=== PATIENT | female | born 1975 | race Caucasian/White ===

== ENCOUNTER 2021-06-02 14:00 | Observation (INO) | payer BC ==
[2021-06-02] MEDS ORDERED: Lactated Ringers 1,000 ML IV ONE (14:26)
[2021-06-02] MEDS ORDERED: levETIRAcetam 500 MG in Sodium Chloride 0.9% 100 ML IV ONE ×2 (14:27→16:31)
[2021-06-02] MEDS ORDERED: Sodium Chloride 0.9% 10 ML Syringe FLUSH PRN (14:27)
--- NOTE | 2021-06-02 15:45 | EDM.PDOC ---
ED HPI GENERAL MEDICAL PROBLEM - General Chief Complaint: Neuro Symptoms/Deficits Stated Complaint: ZENIA AMB Time Seen by Provider: 06/02/21 14:25 Source of Information: Reports: Patient, EMS, Family (), RN Notes Reviewed - History of Present Illness INITIAL COMMENTS - FREE TEXT/NARRATIVE: 45 yr old female with known seizure disorder has had 3 seizures in the past 5 hrs. She is on keppra, has not missed dosages that she is aware of. Has not been recently ill. saw the first 2, they were brief, 2nd tonic clonic. The third occured in bathroom of their motel, he did not see it but she was not actively seizing when he got to her. Fell and hit back of head with last seizure. Mild Saldivar, mild neck discomfort at time of exam. states she has not been ill. They were out for a 90 minute hike yesterday afternoon, it was hot but she has been drinking fluids. No recent vomiting or diarrhea. state she has not had a seizure in 6 to 8 years. She states she has not been missing any doses of the keppra to her knowledge. - Related Data Allergies Allergy/AdvReac Type Severity Reaction Status Date / Time No Known Allergies Allergy Verified 06/02/21 14:05 Home Meds: Home Meds Chlorthalidone 0 mg PO BID 06/02/21 [History] atorvaSTATin [Lipitor] 0 mg PO DAILY 06/02/21 [History] levETIRAcetam [Keppra] 1,000 mg PO BID 06/02/21 [History] Past Medical History Cardiovascular History: Reports: High Cholesterol, Hypertension Neurological History: Reports: Seizure, Other (See Below) Other Neuro History: Epilepsy - Past Surgical History GI Surgical History: Reports: Appendectomy Social & Family History - Tobacco Use Tobacco Use Status *Q: Never Tobacco User - Caffeine Use Caffeine Use: Reports: Coffee, Tea - Recreational Drug Use Recreational Drug Use: No ED ROS GENERAL - Review of Systems Review Of Systems: See Below Constitutional: Denies: Fever, Chills HEENT: Reports: Other (has a small tongue abrasion) Respiratory: Denies: Shortness of Breath Cardiovascular: Denies: Chest Pain GI/Abdominal: Denies: Abdominal Pain, Diarrhea, Nausea, Vomiting Musculoskeletal: Reports: Neck Pain. Denies: Back Pain, Leg Pain Skin: Reports: No Symptoms Neurological: Reports: Headache. Denies: Numbness, Tingling, Trouble Speaking - Physical Exam Exam: See Below General Appearance: Other (moderately drowsy at time of exam) Eye Exam: Bilateral Eye: PERRL Ears: Normal External Exam Nose: Normal Inspection Throat/Mouth: Other (small abrasion distal R tongue, no active bleeding) Head Exam: Scalp Swelling (mild swelling post scalp, no visible lac or abrasion) Neck: Non-Tender, Other (mild tenderness post neck) Neuro Exam (Abbreviated): Alert, Oriented, No Motor/Sensory Deficits Extremities: Normal Inspection, Normal Range of Motion Skin Exam: Warm, Dry, Normal Color, No Rash Course - Vital Signs Last Recorded V/S: Last Vital Signs Temp 96.9 F 06/02/21 14:02 Pulse 80 06/02/21 17:24 Resp 16 06/02/21 17:24 BP 110/73 06/02/21 17:24 Pulse Ox 100 06/02/21 17:24 - Orders/Labs/Meds Orders: Active Orders 24 hr Category Date Time Status Peripheral IV Care [RC] . DIRECTED Care 06/02/21 14:27 Active CORONAVIRUS COVID-19 ROSAURA [MOLEC] Stat Lab 06/02/21 16:38 Ordered UA W/VIKTOR RFLX IF INDICATED [URIN] Stat Lab 06/02/21 16:46 Ordered Potassium Chloride [KCl in Water 10 MEQ/100 ML] 10 meq Med 06/02/21 16:40 Active Premix Bag 1 bag IV ASDIRECTED Sodium Chloride 0.9% [Normal Saline] 1,000 ml Med 06/02/21 17:00 Active IV ASDIRECTED Sodium Chloride 0.9% [Saline Flush] Med 06/02/21 14:27 Active 10 ml FLUSH ASDIRECTED PRN Peripheral IV Insertion Adult [OM.PC] Stat Oth 06/02/21 14:26 Ordered Medication Orders Potassium Chloride 10 meq/ (Premix) 100 mls @ 50 mls/hr IV ASDIRECTED ONE Stop: 06/02/21 18:39 Last Admin: 06/02/21 17:07 Dose: 50 mls/hr Documented by: ROBERTO Sodium Chloride (Normal Saline) 1,000 mls @ 100 mls/hr IV ASDIRECTED BELLE Sodium Chloride (Sodium Chloride 0.9% 10 Ml Syringe) 10 ml FLUSH ASDIRECTED PRN PRN Reason: Keep Vein Open Last Admin: 06/02/21 14:54 Dose: 10 ml Documented by: ROBERTO Labs: Laboratory Tests 06/02/21 06/02/21 Range/Units 15:40 15:40 WBC 22.04 H (3.98-10.04) K/mm3 RBC 4.43 (3.98-5.22) M/mm3 Hgb 13.1 (11.2-15.7) gm/dl Hct 39.0 (34.1-44.9) % MCV 88.0 (79.4-94.8) fl MCH 29.6 (25.6-32.2) pg MCHC 33.6 (32.2-35.5) g/dl RDW Std Deviation 40.3 (36.4-46.3) fL Plt Count 359 (182-369) K/mm3 MPV 9.4 (9.4-12.3) fl Neut % (Auto) 89.7 H (34.0-71.1) % Lymph % (Auto) 4.1 L (19.3-51.7) % [place] % (Auto) 5.8 (4.7-12.5) % Eos % (Auto) 0 L (0.7-5.8) Baso % (Auto) 0.1 (0.1-1.2) % Neut # (Auto) 19.78 H (1.56-6.13) K/mm3 Lymph # (Auto) 0.90 L (1.18-3.74) K/mm3 [place] # (Auto) 1.28 H (0.24-0.36) K/mm3 Eos # (Auto) 0.00 L (0.04-0.36) K/mm3 Baso # (Auto) 0.02 (0.01-0.08) K/mm3 Sodium 139 (136-145) mEq/L Potassium 3.0 L (3.5-5.1) mEq/L Chloride 101 (98-107) mEq/L Carbon Dioxide 28 (21-32) mEq/L Anion Gap 13.0 (5-15) BUN 12 (7-18) mg/dL Creatinine 0.8 (0.55-1.02) mg/dL Est Cr Clr Drug Dosing 90.85 mL/min Estimated GFR (MDRD) > 60 (>60) mL/min BUN/Creatinine Ratio 15.0 (14-18) Glucose 117 H (70-99) mg/dL Calcium 8.9 (8.5-10.1) mg/dL Total Bilirubin 0.4 (0.2-1.0) mg/dL AST 27 (15-37) U/L ALT 37 (14-59) U/L Alkaline Phosphatase 49 (46-116) U/L Total Protein 6.6 (6.4-8.2) g/dl Albumin 3.6 (3.4-5.0) g/dl Globulin 3.0 gm/dL Albumin/Globulin Ratio 1.2 (1-2) Meds: Medications Generic Name Dose Route Start Last Admin Trade Name Fremichaela PRN Reason Stop Dose Admin Potassium Chloride 10 meq/ 100 mls @ 50 mls/hr 06/02/21 16:40 06/02/21 17:07 Premix IV 06/02/21 18:39 50 mls/hr ASDIRECTED ONE Administration Sodium Chloride 1,000 mls @ 100 mls/hr 06/02/21 17:00 Normal Saline IV ASDIRECTED BELLE Sodium Chloride 10 ml 06/02/21 14:27 06/02/21 14:54 Sodium Chloride 0.9% 10 Ml Syringe FLUSH 10 ml ASDIRECTED PRN Administration Keep Vein Open Discontinued Medications Generic Name Dose Route Start Last Admin Trade Name Trish PRN Reason Stop Dose Admin Lactated Ringer's 1,000 mls @ 999 mls/hr 06/02/21 14:26 06/02/21 14:40 Ringers, Lactated IV 06/02/21 15:26 999 mls/hr .BOLUS ONE Administration Levetiracetam 500 mg/ Sodium 105 mls @ 400 mls/hr 06/02/21 14:27 06/02/21 14:40 Chloride IV 06/02/21 14:41 400 mls/hr ONETIME ONE Administration Levetiracetam 500 mg/ Sodium 105 mls @ 400 mls/hr 06/02/21 16:31 06/02/21 16:38 Chloride IV 06/02/21 16:45 400 mls/hr ONETIME ONE Administration Sodium Chloride Confirm 06/02/21 16:31 06/02/21 16:43 Normal Saline Administered 06/02/21 16:32 Not Given Dose 100 mls @ as directed .ROUTE .STK-MED ONE Sodium Chloride Confirm 06/02/21 17:10 06/02/21 17:23 Normal Saline Administered 06/02/21 17:11 Not Given Dose 1,000 mls @ as directed .ROUTE .STK-MED ONE Levetiracetam Confirm 06/02/21 16:28 06/02/21 16:39 Levetiracetam 500 Mg/5 Ml Sdv Administered 06/02/21 16:29 Not Given Dose 500 mg .ROUTE .STK-MED ONE Lorazepam Confirm 06/02/21 16:25 06/02/21 16:25 Lorazepam 2 Mg/Ml Sdv Administered 06/02/21 16:26 1 mg Dose Administration 2 mg .ROUTE .STK-MED ONE - Re-Assessments/Exams Free Text/Narrative Re-Assessment/Exam: 06/02/21 17:12. Pt had a brief seizure right after her head CT about 30 minutes ago. Generalized tonic clonic lasting about 2 minutes. She did drop her sats at the end of the seizure but they did come back to 100 % very quickly with O2 once seizure stopped. We did give another 500 mg keppra IV and also ativan 1 mg IV. 17:35. I talked to Dr Horvath, Neurologist [facility], discussed events of today for this patient. He suggests increasing her Keppra to 1250 mg twice daily from the current 1000 mg bid. He agrees with correcting her current potassium deficit. He suggest overnight Obvs. admission, if doing well consider discharge tomorrow. I have discussed this with Dr Senior, our Hospitalist who is in agreement with that plan. Departure - Departure Time of Disposition: 17:30 Disposition: Refer to Observation Condition: Fair Clinical Impression: Recurrent seizures, Hypokalemia - Discharge Information Referrals: PCP,Not In Area [Primary Care Provider] - Forms: ED Department Discharge Sepsis Event Note (ED) - Evaluation Sepsis Screening Result: No Definite Risk - Focused Exam Vital Signs: Vital Signs Temp Pulse Resp BP BP Pulse Ox 06/02/21 17:24 80 16 110/73 100 06/02/21 14:02 96.9 F 62 18 133/75 100 ED Communication - Discussed Case With (1) Discussed Case With (1): Admitting Provider (Dr Senior, decision to admit at about 17:30) - My Orders Last 24 Hours: My Active Orders 06/02/21 14:26 Peripheral IV Insertion Adult [OM.PC] Stat 06/02/21 14:27 Peripheral IV Care [RC] . DIRECTED Sodium Chloride 0.9% [Saline Flush] 10 ml FLUSH ASDIRECTED PRN 06/02/21 16:38 CORONAVIRUS COVID-19 ROSARUA [MOLEC] Stat 06/02/21 16:40 Potassium Chloride [KCl in Water 10 MEQ/100 ML] 10 meq Premix Bag 1 bag IV ASDIRECTED 06/02/21 16:46 UA W/VIKTOR RFLX IF INDICATED [URIN] Stat 06/02/21 17:00 Sodium Chloride 0.9% [Normal Saline] 1,000 ml IV ASDIRECTED - Assessment/Plan Last 24 Hours: My Active Orders 06/02/21 14:26 Peripheral IV Insertion Adult [OM.PC] Stat 06/02/21 14:27 Peripheral IV Care [RC] . DIRECTED Sodium Chloride 0.9% [Saline Flush] 10 ml FLUSH ASDIRECTED PRN 06/02/21 16:38 CORONAVIRUS COVID-19 ROSAURA [MOLEC] Stat 06/02/21 16:40 Potassium Chloride [KCl in Water 10 MEQ/100 ML] 10 meq Premix Bag 1 bag IV ASDIRECTED 06/02/21 16:46 UA W/VIKTOR RFLX IF INDICATED [URIN] Stat 06/02/21 17:00 Sodium Chloride 0.9% [Normal Saline] 1,000 ml IV ASDIRECTED
[2021-06-02] MEDS ORDERED: LORazepam 2 MG/ML SDV ONE (16:25)
[2021-06-02] MEDS ORDERED: levETIRAcetam 500 MG/5 ML SDV ONE (16:28)
[2021-06-02] MEDS ORDERED: Sodium Chloride 0.9% 100 ML ONE (16:31)
[2021-06-02] MEDS ORDERED: Potassium Chloride 10 MEQ in Premix Bag 1 BAG IV ONE (16:40)
--- NOTE | 2021-06-02 16:42 | CT ---
Head CT Technique: Multiple axial sections through the brain were obtained. Intravenous contrast was not utilized. Reconstructed coronal and sagittal images were obtained. Comparison: No prior intracranial imaging is available. Findings: Ventricles along with basal cisterns and sulci over the convexities are within normal limits for the patient's age. No abnormal parenchymal densities are seen. No evidence of intracranial hemorrhage is seen. No midline shift or mass-effect is seen. Bone window settings were reviewed which show nothing acute within the visualized mastoid sinuses and paranasal sinuses. No acute calvarial abnormality is appreciated. Impression: 1. Nothing acute is appreciated on noncontrast head CT study. Diagnostic code #1
--- NOTE | 2021-06-02 16:43 | CT ---
CT cervical spine Technique: Multiple axial sections were obtained from above C1 inferiorly to the mid T2 level. Reconstructed coronal and sagittal images were obtained. Comparison: No prior cervical spine imaging is available. Findings: Vertebral body heights and disc spaces are maintained. No bony central or bony neural foraminal stenosis is seen. No fracture is seen. No abnormal subluxation is seen. Impression: 1. No abnormality is identified on CT study of the cervical spine. Diagnostic code #1
[2021-06-02] MEDS ORDERED: Sodium Chloride 0.9% 1,000 ML IV SCH (17:00)
[2021-06-02] MEDS ORDERED: Sodium Chloride 0.9% 1,000 ML ONE (17:10)
[2021-06-02] MEDS ORDERED: Docusate Sodium 100 MG Cap PO PRN (17:41)
[2021-06-02] MEDS ORDERED: Ondansetron 4 MG Tab.DIS PO PRN (17:41)
[2021-06-02] MEDS ORDERED: Temazepam 7.5 MG Cap PO PRN (17:41)
[2021-06-02] MEDS ORDERED: Sodium Chloride 0.9% 500 ML IV SCH (17:44)
--- NOTE | 2021-06-02 17:50 | PCM.HP.2 ---
H&P History of Present Illness - General Date of Service: 06/02/21 Admit Problem/Dx: Admission Diagnosis/Problem Admission Diagnosis/Problem Seizure Source of Information: Patient History Limitations: Reports: No Limitations - History of Present Illness Onset of Symptoms: Reports: Today Symptom Onset Date: 06/02/21 Location: Reports: Other (seizure) Improves with: Reports: None Worsens with: Reports: None Associated Symptoms: Reports: Other (post ictal lethargy) - Related Data Allergies/Adverse Reactions: Allergies Allergy/AdvReac Type Severity Reaction Status Date / Time No Known Allergies Allergy Verified 06/02/21 14:05 Home Medications: Home Meds Chlorthalidone 0 mg PO BID 06/02/21 [History] atorvaSTATin [Lipitor] 0 mg PO DAILY 06/02/21 [History] levETIRAcetam [Keppra] 1,000 mg PO BID 06/02/21 [History] Past Medical History Cardiovascular History: Reports: High Cholesterol, Hypertension Neurological History: Reports: Seizure, Other (See Below) Other Neuro History: Epilepsy - Past Surgical History GI Surgical History: Reports: Appendectomy Social & Family History - Tobacco Use Tobacco Use Status *Q: Never Tobacco User - Caffeine Use Caffeine Use: Reports: Coffee, Tea - Recreational Drug Use Recreational Drug Use: No H&P Review of Systems - Review of Systems: Review Of Systems: See Below General: Reports: No Symptoms HEENT: Reports: No Symptoms Pulmonary: Reports: No Symptoms Cardiovascular: Reports: No Symptoms Gastrointestinal: Reports: No Symptoms Genitourinary: Reports: No Symptoms Musculoskeletal: Reports: No Symptoms Skin: Reports: No Symptoms Psychiatric: Reports: No Symptoms Neurological: Reports: Seizure, Weakness Hematologic/Lymphatic: Reports: No Symptoms Immunologic: Reports: No Symptoms Exam - Exam Exam: See Below - Vital Signs Vital Signs: Last Vital Signs Temp 96.9 F 06/02/21 14:02 Pulse 80 06/02/21 17:24 Resp 16 06/02/21 17:24 BP 110/73 06/02/21 17:24 Pulse Ox 100 06/02/21 17:24 Weight: 175 lb - Exam General: Alert, Oriented HEENT: Conjunctiva Clear, EOMI Neck: Supple, Trachea Midline Lungs: Clear to Auscultation, Normal Respiratory Effort Cardiovascular: Regular Rate, Regular Rhythm GI/Abdominal Exam: Normal Bowel Sounds, Soft, Non-Tender, No Organomegaly Back Exam: Normal Inspection, Full Range of Motion Extremities: Normal Inspection, Normal Range of Motion Peripheral Pulses: 2+: Dorsalis Pedis (L), Dorsalis Pedis (R) Skin: Warm, Dry Neurological: Cranial Nerves Intact Neuro Extensive - Mental Status: Alert, Oriented x3, Normal Mood/Affect, Normal Cognition, Memory Intact Neuro Extensive - Motor, Sensory, Reflexes: CN II-XII Intact, Normal Gait, Normal Reflexes DTR: 2+: Patella (L), Patella (R), Achilles (L), Achilles (R) Psychiatric: Alert, Normal Affect, Normal Mood - Patient Data Lab Results Last 24 hrs: Laboratory Results - last 24 hr 06/02/21 06/02/21 Range/Units 15:40 15:40 WBC 22.04 H (3.98-10.04) K/mm3 RBC 4.43 (3.98-5.22) M/mm3 Hgb 13.1 (11.2-15.7) gm/dl Hct 39.0 (34.1-44.9) % MCV 88.0 (79.4-94.8) fl MCH 29.6 (25.6-32.2) pg MCHC 33.6 (32.2-35.5) g/dl RDW Std Deviation 40.3 (36.4-46.3) fL Plt Count 359 (182-369) K/mm3 MPV 9.4 (9.4-12.3) fl Neut % (Auto) 89.7 H (34.0-71.1) % Lymph % (Auto) 4.1 L (19.3-51.7) % [place] % (Auto) 5.8 (4.7-12.5) % Eos % (Auto) 0 L (0.7-5.8) Baso % (Auto) 0.1 (0.1-1.2) % Neut # (Auto) 19.78 H (1.56-6.13) K/mm3 Lymph # (Auto) 0.90 L (1.18-3.74) K/mm3 [place] # (Auto) 1.28 H (0.24-0.36) K/mm3 Eos # (Auto) 0.00 L (0.04-0.36) K/mm3 Baso # (Auto) 0.02 (0.01-0.08) K/mm3 Sodium 139 (136-145) mEq/L Potassium 3.0 L (3.5-5.1) mEq/L Chloride 101 (98-107) mEq/L Carbon Dioxide 28 (21-32) mEq/L Anion Gap 13.0 (5-15) BUN 12 (7-18) mg/dL Creatinine 0.8 (0.55-1.02) mg/dL Est Cr Clr Drug Dosing 90.85 mL/min Estimated GFR (MDRD) > 60 (>60) mL/min BUN/Creatinine Ratio 15.0 (14-18) Glucose 117 H (70-99) mg/dL Calcium 8.9 (8.5-10.1) mg/dL Total Bilirubin 0.4 (0.2-1.0) mg/dL AST 27 (15-37) U/L ALT 37 (14-59) U/L Alkaline Phosphatase 49 (46-116) U/L Total Protein 6.6 (6.4-8.2) g/dl Albumin 3.6 (3.4-5.0) g/dl Globulin 3.0 gm/dL Albumin/Globulin Ratio 1.2 (1-2) Result Diagrams: 06/02/21 15:40 06/02/21 15:40 Sepsis Event Note - Evaluation Sepsis Screening Result: No Definite Risk - Focused Exam Vital Signs: Vital Signs Temp Pulse Resp BP BP Pulse Ox 06/02/21 17:24 80 16 110/73 100 06/02/21 14:02 96.9 F 62 18 133/75 100 Problem List Initiated/Reviewed/Updated: Yes Orders Last 24hrs: Active Orders 24 hr Category Date Time Status Patient Status [ADT] Routine ADT 06/02/21 17:38 Ordered Bedrest Bathroom Privileges [RC] ASDIRECTED Care 06/02/21 17:37 Ordered Cardiac Monitoring [RC] CONTINUOUS Care 06/02/21 17:39 Ordered May Shower [RC] ASDIRECTED Care 06/02/21 17:37 Ordered Oxygen Therapy [RC] ASDIRECTED Care 06/02/21 17:38 Ordered Peripheral IV Care [RC] . DIRECTED Care 06/02/21 14:27 Active Up to Chair [RC] ASDIRECTED Care 06/02/21 17:37 Ordered Vital Signs [RC] Q6H Care 06/02/21 17:38 Ordered [employer] Diet [DIET] Diet 06/03/21 Breakfast Ordered BASIC METABOLIC PANEL,BMP [CHEM] AM Lab 06/03/21 05:11 Ordered BASIC METABOLIC PANEL,BMP [CHEM] AM Lab 06/04/21 05:11 Ordered BASIC METABOLIC PANEL,BMP [CHEM] AM Lab 06/05/21 05:11 Ordered BASIC METABOLIC PANEL,BMP [CHEM] AM Lab 06/06/21 05:11 Ordered CBC WITH AUTO DIFF [HEME] AM Lab 06/03/21 05:11 Ordered CBC WITH AUTO DIFF [HEME] AM Lab 06/04/21 05:11 Ordered CBC WITH AUTO DIFF [HEME] AM Lab 06/05/21 05:11 Ordered CBC WITH AUTO DIFF [HEME] AM Lab 06/06/21 05:11 Ordered CORONAVIRUS COVID-19 ROSAURA [MOLEC] Stat Lab 06/02/21 16:38 Ordered MAGNESIUM [CHEM] AM Lab 06/03/21 05:11 Ordered MAGNESIUM [CHEM] AM Lab 06/04/21 05:11 Ordered MAGNESIUM [CHEM] AM Lab 06/05/21 05:11 Ordered MAGNESIUM [CHEM] AM Lab 06/06/21 05:11 Ordered MAGNESIUM [CHEM] Routine Lab 06/02/21 17:41 Ordered POTASSIUM,K [CHEM] Routine Lab 06/02/21 22:00 Ordered UA W/VIKTOR RFLX IF INDICATED [URIN] Stat Lab 06/02/21 16:46 Ordered Acetaminophen [TylenoL] Med 06/02/21 17:41 Ordered 650 mg PO Q4H PRN Chlorthalidone Med 06/02/21 21:00 Ordered 25 mg PO BID Docusate Sodium [Colace] Med 06/02/21 17:41 Ordered 100 mg PO Q12H PRN Enoxaparin [Lovenox] Med 06/02/21 09:00 Ordered 40 mg SUBCUT DAILY Famotidine [Pepcid] Med 06/03/21 09:00 Ordered 20 mg PO DAILY Ondansetron [Zofran ODT] Med 06/02/21 17:41 Ordered 4 mg PO Q4H PRN Potassium Chloride [KCl in Water 10 MEQ/100 ML] 10 meq Med 06/02/21 16:40 Active Premix Bag 1 bag IV ASDIRECTED Potassium Chloride [Klor-Con 10] Med 06/02/21 18:00 Once 10 meq PO ONETIME ONE Sodium Chloride 0.9% [Normal Saline] 500 ml Med 06/02/21 17:44 Ordered IV ASDIRECTED Sodium Chloride 0.9% [Saline Flush] Med 06/02/21 14:27 Active 10 ml FLUSH ASDIRECTED PRN Temazepam [Restoril] Med 06/02/21 17:41 Ordered 7.5 mg PO BEDTIME PRN atorvaSTATin Med 06/03/21 09:00 Ordered 10 mg PO DAILY levETIRAcetam [Keppra] Med 06/02/21 21:00 Ordered 1,250 mg PO BID Peripheral IV Insertion Adult [OM.PC] Stat Oth 06/02/21 14:26 Ordered Seizure Precautions [OM.PC] Routine Oth 06/02/21 17:41 Ordered Resuscitation Status Routine Resus Stat 06/02/21 17:37 Ordered Medication Orders Acetaminophen (Acetaminophen 325 Mg Tab) 650 mg PO Q4H PRN PRN Reason: Pain (Mild 1-3)/fever Docusate Sodium (Docusate Sodium 100 Mg Cap) 100 mg PO Q12H PRN PRN Reason: Constipation Enoxaparin Sodium (Enoxaparin 40 Mg/0.4 Ml Syringe) 40 mg SUBCUT DAILY BELLE Famotidine (Famotidine 20 Mg Tab) 20 mg PO DAILY BELLE Potassium Chloride 10 meq/ (Premix) 100 mls @ 50 mls/hr IV ASDIRECTED ONE Stop: 06/02/21 18:39 Last Admin: 06/02/21 17:07 Dose: 50 mls/hr Documented by: ROBERTO Sodium Chloride (Normal Saline) 500 mls @ 75 mls/hr IV ASDIRECTED BELLE Levetiracetam (Levetiracetam 500 Mg Tab) 1,250 mg PO BID BELLE Ondansetron HCl (Ondansetron 4 Mg Tab.Dis) 4 mg PO Q4H PRN PRN Reason: nausea, able to take PO Potassium Chloride (Potassium Chloride 10 Meq Tab.Er) 10 meq PO ONETIME ONE Stop: 06/02/21 18:01 Sodium Chloride (Sodium Chloride 0.9% 10 Ml Syringe) 10 ml FLUSH ASDIRECTED PRN PRN Reason: Keep Vein Open Last Admin: 06/02/21 14:54 Dose: 10 ml Documented by: ROBERTO Temazepam (Temazepam 7.5 Mg Cap) 7.5 mg PO BEDTIME PRN PRN Reason: Sleep Assessment/Plan Comment:: 45-year-old female with a past medical history of seizures who presents with new onset of multiple seizures while traveling across country today. 1. Acute seizure-patient has not had a seizure in 6 to 7 years. She had one that occurred at 10 AM, lunchtime, an hour later had a third seizure and then a fourth in the ER. She was given 500 of Keppra in the ER. She normally takes 1000 Keppra twice daily. She has not missed any doses. She did get 1 seizure i n the ER or was given Keppra. The ER physician did speak to the neurologist in [facility]. They suggested increasing the Keppra to 1250 twice daily, give first dose this evening, keep his in observation. Secondary comorbidities-continue all home medications Time 75 minutes. Observation - Mortality Measure Prognosis:: Good
[2021-06-02] MEDS ORDERED: Potassium Chloride 10 MEQ Tab.ER PO ONE (18:00)
[2021-06-02] MEDS ORDERED: LORazepam 2 MG/ML SDV IVPUSH PRN (19:23)
[2021-06-02] MEDS: Enoxaparin 40 MG/0.4 ML Syringe SUBCUT SCH (19:48)
[2021-06-02] MEDS: Chlorthalidone 25 MG Tab PO SCH (20:05)
[2021-06-02] MEDS: levETIRAcetam 500 MG Tab PO SCH (20:05)
--- NOTE | 2021-06-03 07:07 | PCM.DCSUM1 ---
Discharge Summary - Hospital Course Free Text/Narrative:: 1. Acute seizure-patient has not had a seizure in 6 to 7 years. She had one that occurred at 10 AM, lunchtime, an hour later had a third seizure and then a fourth in the ER. She was given 500 of Keppra in the ER. She normally takes 1000 Keppra twice daily. She has not missed any doses. She did get 1 seizure in the ER or was given Keppra. The ER physician did speak to the neurologist in [facility]. They suggested increasing the Keppra to 1250 twice daily, give first dose this evening, keep his in observation. Secondary comorbidities-continue all home medications 36 min HPI Initial Comments: 45-year-old female with a past medical history of seizures who presents with new onset of multiple seizures while traveling across country today. Did well with increase seizure meds and home to follow up with neurology and pcp Diagnosis: Stroke: No Modified [place] Scale: No Symptoms at All Modified [place] Scale Score: 0 - Discharge Data Discharge Date: 06/03/21 Discharge Disposition: Home, Self-Care 01 Condition: Good - Referral to Home Health Primary Care Physician: PCP Not In Area - Discharge Plan Home Medications: Home Meds Chlorthalidone 25 mg PO BID 06/02/21 [History] atorvaSTATin [Lipitor] 40 mg PO DAILY 06/02/21 [History] levETIRAcetam [Keppra] 1,000 mg PO BID 06/02/21 [History] Forms: ED Department Discharge Referrals: PCP,Not In Area [Primary Care Provider] - - Discharge Summary/Plan Comment DC Time >30 min.: Yes (36) Total # of Minutes for Discharge Time: 36 - General Info Date of Service: 06/03/21 Admission Dx/Problem (Free Text: Admission Diagnosis/Problem Admission Diagnosis/Problem Seizure Functional Status: Reports: Pain Controlled - Review of Systems General: Reports: No Symptoms HEENT: Reports: No Symptoms Pulmonary: Reports: No Symptoms Cardiovascular: Reports: No Symptoms Gastrointestinal: Reports: No Symptoms Genitourinary: Reports: No Symptoms Musculoskeletal: Reports: No Symptoms Skin: Reports: No Symptoms Neurological: Reports: No Symptoms Psychiatric: Reports: No Symptoms - Patient Data Vitals - Most Recent: Last Vital Signs Temp 98.4 F 06/03/21 05:20 Pulse 67 10/06/21 05:20 Resp 16 06/03/21 05:20 BP 108/78 06/03/21 05:20 Pulse Ox 97 06/03/21 05:20 Weight - Most Recent: 168 lb 1.6 oz I&O - Last 24 hours: Intake & Output 06/02/21 06/03/21 06/03/21 22:59 06:59 14:59 Intake Total 800 Output Total 1300 Balance -500 Lab Results - Last 24 hrs: Laboratory Results - last 24 hr 06/02/21 06/02/21 06/02/21 Range/Units 15:40 15:40 15:40 WBC 22.04 H (3.98-10.04) K/mm3 RBC 4.43 (3.98-5.22) M/mm3 Hgb 13.1 (11.2-15.7) gm/dl Hct 39.0 (34.1-44.9) % MCV 88.0 (79.4-94.8) fl MCH 29.6 (25.6-32.2) pg MCHC 33.6 (32.2-35.5) g/dl RDW Std Deviation 40.3 (36.4-46.3) fL Plt Count 359 (182-369) K/mm3 MPV 9.4 (9.4-12.3) fl Neut % (Auto) 89.7 H (34.0-71.1) % Lymph % (Auto) 4.1 L (19.3-51.7) % [place] % (Auto) 5.8 (4.7-12.5) % Eos % (Auto) 0 L (0.7-5.8) Baso % (Auto) 0.1 (0.1-1.2) % Neut # (Auto) 19.78 H (1.56-6.13) K/mm3 Lymph # (Auto) 0.90 L (1.18-3.74) K/mm3 [place] # (Auto) 1.28 H (0.24-0.36) K/mm3 Eos # (Auto) 0.00 L (0.04-0.36) K/mm3 Baso # (Auto) 0.02 (0.01-0.08) K/mm3 Sodium 139 (136-145) mEq/L Potassium 3.0 L (3.5-5.1) mEq/L Chloride 101 (98-107) mEq/L Carbon Dioxide 28 (21-32) mEq/L Anion Gap 13.0 (5-15) BUN 12 (7-18) mg/dL Creatinine 0.8 (0.55-1.02) mg/dL Est Cr Clr Drug Dosing 90.85 mL/min Estimated GFR (MDRD) > 60 (>60) mL/min BUN/Creatinine Ratio 15.0 (14-18) Glucose 117 H (70-99) mg/dL Calcium 8.9 (8.5-10.1) mg/dL Magnesium 1.9 (1.8-2.4) mg/dL Total Bilirubin 0.4 (0.2-1.0) mg/dL AST 27 (15-37) U/L ALT 37 (14-59) U/L Alkaline Phosphatase 49 (46-116) U/L Total Protein 6.6 (6.4-8.2) g/dl Albumin 3.6 (3.4-5.0) g/dl Globulin 3.0 gm/dL Albumin/Globulin Ratio 1.2 (1-2) Urine Color (Yellow) Urine Appearance (Clear) Urine pH (5.0-8.0) Ur Specific [place] (1.005-1.030) Urine Protein (Negative) Urine Glucose (UA) (Negative) Urine Ketones (Negative) Urine Occult Blood (Negative) Urine Nitrite (Negative) Urine Bilirubin (Negative) Urine Urobilinogen (0.2-1.0) Ur Leukocyte Esterase (Negative) Urine RBC (0-5) /hpf Urine WBC (0-5) /hpf Ur Squamous Epith Cells (0-5) /hpf Urine Bacteria (FEW) /hpf Urine Mucus (FEW) /hpf SARS-CoV-2 RNA (ROSAURA) (NEGATIVE) 06/02/21 06/02/21 06/03/21 Range/Units 19:05 22:00 05:15 WBC (3.98-10.04) K/mm3 RBC (3.98-5.22) M/mm3 Hgb (11.2-15.7) gm/dl Hct (34.1-44.9) % MCV (79.4-94.8) fl MCH (25.6-32.2) pg MCHC (32.2-35.5) g/dl RDW Std Deviation (36.4-46.3) fL Plt Count (182-369) K/mm3 MPV (9.4-12.3) fl Neut % (Auto) (34.0-71.1) % Lymph % (Auto) (19.3-51.7) % [place] % (Auto) (4.7-12.5) % Eos % (Auto) (0.7-5.8) Baso % (Auto) (0.1-1.2) % Neut # (Auto) (1.56-6.13) K/mm3 Lymph # (Auto) (1.18-3.74) K/mm3 [place] # (Auto) (0.24-0.36) K/mm3 Eos # (Auto) (0.04-0.36) K/mm3 Baso # (Auto) (0.01-0.08) K/mm3 Sodium (136-145) mEq/L Potassium 2.7 L (3.5-5.1) mEq/L Chloride (98-107) mEq/L Carbon Dioxide (21-32) mEq/L Anion Gap (5-15) BUN (7-18) mg/dL Creatinine (0.55-1.02) mg/dL Est Cr Clr Drug Dosing mL/min Estimated GFR (MDRD) (>60) mL/min BUN/Creatinine Ratio (14-18) Glucose (70-99) mg/dL Calcium (8.5-10.1) mg/dL Magnesium (1.8-2.4) mg/dL Total Bilirubin (0.2-1.0) mg/dL AST (15-37) U/L ALT (14-59) U/L Alkaline Phosphatase (46-116) U/L Total Protein (6.4-8.2) g/dl Albumin (3.4-5.0) g/dl Globulin gm/dL Albumin/Globulin Ratio (1-2) Urine Color [place] H (Yellow) Urine Appearance Clear (Clear) Urine pH 7.0 (5.0-8.0) Ur Specific [place] 1.020 (1.005-1.030) Urine Protein Negative (Negative) Urine Glucose (UA) Negative (Negative) Urine Ketones Negative (Negative) Urine Occult Blood 3+ H (Negative) Urine Nitrite Negative (Negative) Urine Bilirubin Negative (Negative) Urine Urobilinogen 0.2 (0.2-1.0) Ur Leukocyte Esterase Negative (Negative) Urine RBC 75-100 H (0-5) /hpf Urine WBC 0-5 (0-5) /hpf Ur Squamous Epith Cells 0-5 (0-5) /hpf Urine Bacteria Not seen (FEW) /hpf Urine Mucus Not seen (FEW) /hpf SARS-CoV-2 RNA (ROSAURA) Negative (NEGATIVE) 06/03/21 06/03/21 Range/Units 05:58 05:58 WBC 12.88 H (3.98-10.04) K/mm3 RBC 4.67 (3.98-5.22) M/mm3 Hgb 13.8 (11.2-15.7) gm/dl Hct 41.2 (34.1-44.9) % MCV 88.2 (79.4-94.8) fl MCH 29.6 (25.6-32.2) pg MCHC 33.5 (32.2-35.5) g/dl RDW Std Deviation 40.4 (36.4-46.3) fL Plt Count 380 H (182-369) K/mm3 MPV 9.6 (9.4-12.3) fl Neut % (Auto) 76.0 H (34.0-71.1) % Lymph % (Auto) 14.4 L (19.3-51.7) % [place] % (Auto) 9.2 (4.7-12.5) % Eos % (Auto) 0 L (0.7-5.8) Baso % (Auto) 0.2 (0.1-1.2) % Neut # (Auto) 9.79 H (1.56-6.13) K/mm3 Lymph # (Auto) 1.86 (1.18-3.74) K/mm3 [place] # (Auto) 1.19 H (0.24-0.36) K/mm3 Eos # (Auto) 0.00 L (0.04-0.36) K/mm3 Baso # (Auto) 0.02 (0.01-0.08) K/mm3 Sodium 139 (136-145) mEq/L Potassium 2.9 L (3.5-5.1) mEq/L Chloride 100 (98-107) mEq/L Carbon Dioxide 30 (21-32) mEq/L Anion Gap 11.9 (5-15) BUN 7 (7-18) mg/dL Creatinine 0.7 (0.55-1.02) mg/dL Est Cr Clr Drug Dosing 103.83 mL/min Estimated GFR (MDRD) > 60 (>60) mL/min BUN/Creatinine Ratio 10.0 L (14-18) Glucose 110 H (70-99) mg/dL Calcium 8.7 (8.5-10.1) mg/dL Magnesium 2.1 (1.8-2.4) mg/dL Total Bilirubin (0.2-1.0) mg/dL AST (15-37) U/L ALT (14-59) U/L Alkaline Phosphatase (46-116) U/L Total Protein (6.4-8.2) g/dl Albumin (3.4-5.0) g/dl Globulin gm/dL Albumin/Globulin Ratio (1-2) Urine Color (Yellow) Urine Appearance (Clear) Urine pH (5.0-8.0) Ur Specific [place] (1.005-1.030) Urine Protein (Negative) Urine Glucose (UA) (Negative) Urine Ketones (Negative) Urine Occult Blood (Negative) Urine Nitrite (Negative) Urine Bilirubin (Negative) Urine Urobilinogen (0.2-1.0) Ur Leukocyte Esterase (Negative) Urine RBC (0-5) /hpf Urine WBC (0-5) /hpf Ur Squamous Epith Cells (0-5) /hpf Urine Bacteria (FEW) /hpf Urine Mucus (FEW) /hpf SARS-CoV-2 RNA ([facility]) (NEGATIVE) Med Orders - Current: Current Medications Acetaminophen (Acetaminophen 325 Mg Tab) 650 mg PO Q4H PRN PRN Reason: Pain (Mild 1-3)/fever Atorvastatin Calcium (Atorvastatin 20 Mg Tab) 10 mg PO DAILY [facility] Chlorthalidone (Chlorthalidone 25 Mg Tab) 25 mg PO BID [facility] Last Admin: 06/02/21 20:05 Dose: 25 mg Documented by: Docusate Sodium (Docusate Sodium 100 Mg Cap) 100 mg PO Q12H PRN PRN Reason: Constipation Enoxaparin Sodium (Enoxaparin 40 Mg/0.4 Ml Syringe) 40 mg SUBCUT DAILY [facility] Last Admin: 06/02/21 19:48 Dose: Not Given Documented by: Famotidine (Famotidine 20 Mg Tab) 20 mg PO DAILY [facility] Levetiracetam (Levetiracetam 500 Mg Tab) 1,250 mg PO BID [facility] Last Admin: 06/02/21 20:05 Dose: 1,250 mg Documented by: Lorazepam (Lorazepam 2 Mg/Ml Sdv) 2 mg IVPUSH ONETIME PRN PRN Reason: Seizures Ondansetron HCl (Ondansetron 4 Mg Tab.Dis) 4 mg PO Q4H PRN PRN Reason: nausea, able to take PO Sodium Chloride (Sodium Chloride 0.9% 10 Ml Syringe) 10 ml FLUSH ASDIRECTED PRN PRN Reason: Keep Vein Open Last Admin: 06/02/21 14:54 Dose: 10 ml Documented by: Temazepam (Temazepam 7.5 Mg Cap) 7.5 mg PO BEDTIME PRN PRN Reason: Sleep Discontinued Medications Lactated Ringer's (Ringers, Lactated) 1,000 mls @ 999 mls/hr IV .BOLUS ONE Stop: 06/02/21 15:26 Last Admin: 06/02/21 14:40 Dose: 999 mls/hr Documented by: Levetiracetam 500 mg/ Sodium (Chloride) 105 mls @ 400 mls/hr IV ONETIME ONE Stop: 06/02/21 14:41 Last Admin: 06/02/21 14:40 Dose: 400 mls/hr Documented by: Levetiracetam 500 mg/ Sodium (Chloride) 105 mls @ 400 mls/hr IV ONETIME ONE Stop: 06/02/21 16:45 Last Admin: 06/02/21 16:38 Dose: 400 mls/hr Documented by: Sodium Chloride (Normal Saline) Confirm Administered Dose 100 mls @ as directed .ROUTE .STK-MED ONE Stop: 06/02/21 16:32 Last Admin: 06/02/21 16:43 Dose: Not Given Documented by: Potassium Chloride 10 meq/ (Premix) 100 mls @ 50 mls/hr IV ASDIRECTED ONE Stop: 06/02/21 18:39 Last Admin: 06/02/21 17:07 Dose: 50 mls/hr Documented by: Sodium Chloride (Normal Saline) 1,000 mls @ 100 mls/hr IV ASDIRECTED BELLE Sodium Chloride (Normal Saline) Confirm Administered Dose 1,000 mls @ as directed .ROUTE .STK-MED ONE Stop: 06/02/21 17:11 Last Admin: 06/02/21 17:23 Dose: Not Given Documented by: Sodium Chloride (Normal Saline) 500 mls @ 75 mls/hr IV ASDIRECTED [facility]LE Levetiracetam (Levetiracetam 500 Mg/5 Ml Sdv) Confirm Administered Dose 500 mg .ROUTE .STK-MED ONE Stop: 06/02/21 16:29 Last Admin: 06/02/21 16:39 Dose: Not Given Documented by: Lorazepam (Lorazepam 2 Mg/Ml Sdv) Confirm Administered Dose 2 mg .ROUTE .STK-MED ONE Stop: 06/02/21 16:26 Last Admin: 06/02/21 16:25 Dose: 1 mg Documented by: Potassium Chloride (Potassium Chloride 10 Meq Tab.Er) 10 meq PO ONETIME ONE Stop: 06/02/21 18:01 Last Admin: 06/02/21 20:05 Dose: 10 meq Documented by: - Exam General: Reports: Alert, Oriented, Cooperative, No Acute Distress HEENT: Reports: Pupils Equal, Pupils Reactive, EOMI Neck: Reports: Supple Lungs: Reports: Clear to Auscultation, Normal Respiratory Effort Cardiovascular: Reports: Regular Rate, Regular Rhythm GI/Abdominal Exam: Normal Bowel Sounds, Soft, Non-Tender, No Organomegaly Back Exam: Reports: Normal Inspection Extremities: Normal Inspection, Normal Range of Motion Skin: Reports: Warm, Dry Neurological: Reports: No New Focal Deficit Psy/Mental Status: Reports: Alert, Normal Affect, Normal Mood
[2021-06-03] MEDS: Enoxaparin 40 MG/0.4 ML Syringe SUBCUT SCH (08:00)
[2021-06-03] MEDS: Chlorthalidone 25 MG Tab PO SCH (08:00)
[2021-06-03] MEDS: Acetaminophen 325 MG Tab PO PRN ×3 (08:03→16:01)
[2021-06-03] MEDS: levETIRAcetam 500 MG Tab PO SCH (08:04)
[2021-06-03] MEDS ORDERED: atorvaSTATin 20 MG Tab PO SCH (09:00)
[2021-06-03] MEDS ORDERED: Famotidine 20 MG Tab PO SCH (09:00)
[2021-06-03] MEDS: Potassium Chloride 10 MEQ in Premix Bag 1 BAG IV SCH ×4 (09:43→14:52)
[2021-06-03] MEDS ORDERED: Sodium Chloride 0.9% 1,000 ML IV SCH (10:00)
[2021-06-03] MEDS ORDERED: Potassium Chloride 20 MEQ Tab.ER PO ONE (17:36)
[2021-06-03] MEDS ORDERED: FLU Vacc QS2021-22 36MOS UP/PF 60 MCG/0.5 ML Syringe IM ONE (18:15)
== END 2021-06-03 19:00 | disposition home or self-care (01) ==
LOC: JD.ED 14:00 → JD.MS 18:07
PROVIDERS: ADMIT Internal Medicine; ATTEND Internal Medicine
DX: R56.9 Unspecified convulsions (principal); I10 Essential (primary) hypertension; E78.00 Pure hypercholesterolemia, unspecified; Z79.899 Other long term (current) drug therapy; Z20.822 Contact with and (suspected) exposure to COVID-19
CPT/HCPCS: 36415; 70450; 72125; 80048; 80053; 81001; 83735; 84132; 85025; 87635; 90471; 90686; A9270; J1953; J2060; J3480; J7030; J7120; G0008; U0002